=== PATIENT | male | born 1975 | race Caucasian/White ===

== ENCOUNTER 2025-04-09 13:34 | Outpatient (CLI) | payer OTHER, SELFPAY ==
--- NOTE | ~2025-04-09 | US_ITS ---
Renal-Bladder ultrasound Clinical History: Abdominal pain Technique: Real-time sonographic imaging of the kidneys and urinary bladder was performed. Findings: The right kidney measures 11.2 cm in length and the left kidney measures 12.5 cm. There is no hydronephrosis. There is a 1.1 x 0.8 x 0.8 cm echogenic focal area in the superior aspect of the r ight kidney which appears to be near the sinus. No shadowing but there is twinkle artifact.. Renal co rtical echogenicity is within normal limits. No renal mass lesion is identified. The urinary bladder is partially distended at the time of this exam. No intraluminal echoes are ident ified. No abnormal wall thickening is seen. Impression: 1.1 cm echogenic area of the supraspinatus right kidney without shadowing, but with twinkle artifact. Consider stone versus focally prominent sinus fat. Consider CT to further evaluate as indicated. Reviewed, dictated and finalized at location . Impression: 1.1 cm echogenic area of the supraspinatus right kidney without shadowing, but with twinkle artifact. Consider stone versus focally prominent sinus fat. Consi antonio CT to further evaluate as indicated.
--- OUTSIDE RECORDS SUMMARY | 2025-04-09 13:44 | XMS_ITS | Clinical Summary ---
Author Organization [facility] Address [address] [place] [address] Care Team Providers Care Laborer Starch Factory Name Role Phone Oscar Brink MD Primary Care Provider +1- [phone] Allergies No known active allergies Surgical History Surgery Date Site/Laterality Comments TOE SURGERY Left Medical History Medical History Date Comments Hx Other Medical Foot 2years ago Hypertension Family History Medical History Relation Name Comments Hypertension Other Family history of Hypertension; Relation Name Status Comments Other Social History Tobacco Use Types Packs/Day Years Used Date Smoking Tobacco: Never Smokeless Tobacco: Never Personal Safety Answer Date Recorded Have you ever been in or are you currently in a harmful physical or emotional relationship or is someone making you feel afraid or unsafe? 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 Gender Identity Not on file Sexual Orientation Not on file Obstetrics History Last Filed Vital Signs Vital Sign Reading Time Taken Comments Blood Pressure 161/103 05/07/2024 5:12 PM CDT Pulse 76 05/07/2024 5:12 PM CDT Temperature 36.3 C (97.3 F) 05/07/2024 12:02 PM CDT Respiratory Rate 16 05/07/2024 5:12 PM CDT Oxygen Saturation 99% 05/07/2024 5:12 PM CDT Inhaled Oxygen Concentration - - Weight 99.8 kg (220 lb) 05/07/2024 12:02 PM CDT Height 182.9 cm (6') 05/07/2024 12:02 PM CDT Body Mass Index 29.84 05/07/2024 12:02 PM CDT Plan of Treatment Health Maintenance Due Date Last Done Comments Colon Cancer Screening-Colonoscopy 1975 Depression Screening 1975 Hepatitis C Screening 1975 DTaP/Tdap/Td Vaccine (1 - Tdap) 1986 Hepatitis B Screening 1993 Regular Well Visit/Exam 18-64 1993 Covid-19 Vaccine (4 2023-2 5 season) 2024 10/28/2021, 02/01/2021, 01/11/2021 Influenza Vaccine (#1) 2024 Pneumococcal vaccine <65 Aged Out No longer eligible based on patient's age to complete this topic Insurance UHC CHOICE PLUS [id number] CHOICE PLUS [facility] CHOICE PLUS Care Teams Laborer Starch Factory Relationship Specialty Start Date End Date Oscar Brink MD [address] [facility] [address] [place] [address] PCP - General 12/23/16
--- OUTSIDE RECORDS SUMMARY | 2025-04-09 13:44 | XMS_ITS | Clinical Summary ---
Author Organization [facility] Address [address] [place] [address] Care Team Providers Care Final Inspector Truck Trailer Name Role Phone Unavailable Primary Care Provider Unavailabl e Source Comments [facility],non-owned Affiliates and Associated Physician Practices is amultiple site organization consisting of ambulatory clinics and hospital sitesin [place], [place], [place] and [place]. This disclosure is being madepursuant to the Care Everywhere program and may not contain all information available regarding this patient. Last updated 18.[facility] Allergies No known active allergies Medications * Be aware that medications may not be up to date on this document. Alwaysverify current medications with the patient. losartan (Cozaar) 100 MG tablet Take 1 (one) tablet by mouth once daily 4 Active sildenafil (Viagra) 100 MG tablet take 1 tablet by mouth once daily if needed for SEXUAL ACTIVITY A... (REFER TO PRESCRIPTION NOTES). 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 Gender Identity Not on file Sexual Orientation Not on file Last Filed Vital Signs Vital Sign Reading Time Taken Comments Blood Pressure 160/108 06/03/2024 10:07 AM CDT Pulse 76 06/03/2024 10:07 AM CDT Temperature 36.9 C (98.4 F) 06/03/2024 10:07 AM CDT Respiratory Rate 17 05/02/2024 12:12 PM CDT Oxygen Saturation 99% 05/02/2024 12:12 PM CDT Inhaled Oxygen Concentration - - Weight 104.8 kg (231 lb) 06/03/2024 10:07 AM CDT Height 182.9 cm (6') 06/03/2024 10:07 AM CDT Body Mass Index 31.33 06/03/2024 10:07 AM CDT Plan of Treatment Health Maintenance Due Date Last Done Comments COLOGUARD (AGES 45-75) - COL ON CA SCREENING 1975 COLON MONITORING 1975 COLONOSCOPY - COLON CA SCREENING 1975 CT COLONOGRAPHY - COLON CA SCREENING 1975 Colorectal Cancer Screening 1975 FIT - COLON CA SCREENING 1975 FLEX SIG - COLON CA SCREENING 1975 LIPID TESTING 1975 HIV SCREENING 1990 HEPATITIS C SCREENING 04/28/1993 DTAP/TDAP/TD VACCINES (1 - Tdap) 1994 HEPATITIS B VACCINE (1 of 3 - 19+ 3-dose series) 1994 COVID-19 VACCINE (2 - 2023-2 5 season) 2024 10/28/2021 DEPRESSION SCREENING 11/27/2024 06/03/2024 ZOSTER VACCINE (1 of 2) 2025 INFLUENZA VACCINE (Season Ended) 2025 SCREENING FOR DIABETES 05/02/2027 , 05/01/2024 HIB VACCINE Aged Out No longer eligi ble based on patient's age to complete this topic HPV VACCINE Aged Out No longer eligi ble based on patient's age to complete this topic MENINGOCOCCAL (Group B) VACCINE SHARED DECISION-MAKING Aged Out No longer eligible based on patient's age to complete this topic MENINGOCOCCAL GROUPS A/C/Y/W VACCINE Aged Out No longer eligible b ased on patient's age to complete this topic Procedures Procedure Name Priority Date/Time Associated Diagnosis Comments BASIC METABOLIC PANEL (CALCIUM TOTAL) STAT 05/02/2024 4:56 AM CDT Acute pain of left lower extremity Bradycardia from Last 3 Months or Most Recently Relevant to Health Maintenance Results * (ABNORMAL) BASIC METABOLIC PANEL (CALCIUM TOTAL) (05/02/2024 4:56 AM CDT) [facility] Signature Glucose 86 70 - 105 mg/dL 05/02/2024 6:43 AM CDT [facility] Sodium 140 136 - 145 mmol/L 05/02/2024 6:43 AM CDT [facility] Potassium 3.9 3.5 - 5.1 mmol/L 05/02/2024 6:43 AM CDT [facility] Chloride 108(H) 98 - 107 mmol/L 05/02/2024 6:43 AM CDT [facility] CO2 25 22 - 29 mmol/L 05/02/2024 6:43 AM CDT [facility] Calcium 9.4 8.4 - 10.4 mg/dL 05/02/2024 6:43 AM CDT [facility] Anion Gap 7 6 - 16 mmol/L 05/02/2024 6:43 AM CDT [facility] BUN 17 5.3 - 18.7 mg/dL 05/02/2024 6:43 AM CDT [facility] Creatinine 0.91 0.72 - 1.25 mg/dL 05/02/2024 6:43 AM CDT [facility] eGFR by CKD-EPI >90 >=90 mL/min/1.7 3 m2 05/02/2024 6:43 AM T [facility] Blood BLOOD SPECIMEN / Unknown Lab Venipuncture / Unknown 05/02/2024 4:56 AM CDT 05/02/2024 6:07 AM CDT us Shaye Ochoa MD LAB - CHEMISTRY ORDERABLES Final Result [facility] [address] [place] [address] from Last 3 Months or Most Recently Relevant to Health Maintenance Insurance [facility] Advance Directives * Full Code (Latest Code Status on File) Date Activated Date Inactivated Comments 05/01/2024 9:39 PM 05/02/2024 5:28 PM
--- OUTSIDE RECORDS SUMMARY | 2025-04-09 13:44 | XMS_ITS | Encounter Summary ---
Author Organization [facility] Address [address] [place] [address] Care Team Providers Care Wood Flooring Specialist Name Role Phone Oscar Brink MD Primary Care Provider +1- [phone] Encounter Details Date Type Department Care Team (Late st Contact Info) Description 12/23/2016 Orders Only [facility] ProviderGisselle MD [address] [place] [address] Social History Tobacco Use Types Packs/Day Years Used Date Smoking Tobacco: Never Assessed Sex and Gender Information Value Date Recorded Sex Assigned at Not on file 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 Historical Provider [facility] VALENTIN Final Result documented in this encounter Visit Diagnoses Not on filedocumented in this encounter Care Teams Wood Flooring Specialist Relationship Specialty Start Date End Date Oscar Brink MD [address] [place] [address] PCP - General 12/23/16 documented as of this encounter
--- OUTSIDE RECORDS SUMMARY | 2025-04-09 13:44 | XMS_ITS | Continuity of Care Document ---
Author Organization [facility] Address [address] [place] [address] [place] [address] Phone Care Team Providers Care Machine Stuffer Automatic Name Role Phone Boby Mendoza MD Unavailable Unavailable Allergies, Adverse Reactions, Alerts Substance Reaction Status Criticality No Known Allergies Active No Inform ation Medications Medication Instructions Dosage Effective Dates (start - stop) Status Comments Flexeril 10 mg tablet take 1 tablet by oral route 2 times every day as needed 10 MG - Active PRN for pain , avoid driving or operat emachines prednisone 20 mg tablet take 3 Tablet by oral route every day 60 MG - Active Edelmira 180 mg tablet take 1 tablet by oral route every day - Active cefdinir 300 mg capsule take 1 capsule by oral route every 12 hours 300 MG - Active Flonase 50 mcg/actuation nasal spray,suspension inhale 2 spray by intranasal route every day in each nostril 100 MCG - Active Procedures Procedure Date PREV VISIT, NEW, AGE 18-39 OFFICE/OUTPATIENT VISIT, NEW Advance Directives Directive Yes / No Effective Date File Name No Information Encounters Encounter Description Practice Location Reason(s) For Visit Diagnoses Date Provider Providers Copied on Encounter PREV VISIT, NEW, AGE 18-39 [facility], [address] [place], [place] [address], [place], [id number], [place] tel:[phone] [facility] Physical (chief complaint) Dietary surveillance and counselingRoutine Medical ExamUnspecified sinusitis (chronic)LumbagoRo utine Medical Exam [address], [facility], [place], [place], [id number] , [place]. tel:[phone] Family History Family Member Type Diagnosis Age At Onset Mother Problem (finding) COPD, lung CA Father Problem (finding) Alive and well Payers Payer name Insurance type Covered alliance party ID Authorhomero mckenzie(s) No Information Social History Type Description Quantity Date Captured Comments Alcohol Use Details Caffeine Use Details Unknown Tobacco Use Status No Information Smoking Status Never smoker Non-Smoking Tobacco Use Details : No Details Available : No Details Available Sex Male Vital Signs Date / Time: Height Weight BMI Pulse Rate Blood Pressure Temperature Respiratory Rate Body Surface Area Head Circumference BMI percentile Pulse Ox Inhaled Ox 9:34 AM 72.00 in 235.00 lbs 31.8 7 kg/m eter (2) 64 /min 130/93 mm[Hg] 97.3 F 16 /min Chief Complaint And Reason For Visit From encounter dated '04/01/2015 09:33'. Physical (chief complaint) Plan Of Treatment Date Type Action Status Referral Ordered: Physical Therapy (related to Lumbago) ordered Referral Referred To: Physical Therapy Ordered: Referral: Physical Therapy. Evaluate and treat. ordered Referral Ordered: LUMBAR XRAY AP AND LAT ONLY ordered History Of Present Illness Encounter Date Complaint History Of Prese nt Illness No Information Instructions Date Instruction Additional Infor mation Physical activity counseling Rel ated to Dietary surveillance counseling Decrease caloric intake Related to Dietary surveillance counseling Assessments Type Assessment Date No Information Mental Status Date Cognitive Assessment Orientation - [place] ed to time, place, person, situation.
--- OUTSIDE RECORDS SUMMARY | 2025-04-09 13:44 | XMS_ITS | Referral Summary ---
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
== END 2025-04-09 13:35 | disposition home or self-care (01) ==
PROVIDERS: PCP Internal Medicine; Visit Provider Internal Medicine
DX: R93.421 Abnormal radiologic findings on diagnostic imaging of right kidney (principal); R10.9 Unspecified abdominal pain
CPT/HCPCS: 76775

== ENCOUNTER 2025-04-25 10:26 | Outpatient (CLI) | payer OTHER, SELFPAY ==
--- OUTSIDE RECORDS SUMMARY | 2025-04-25 10:45 | XMS_ITS | Clinical Summary ---
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
--- OUTSIDE RECORDS SUMMARY | 2025-04-25 10:45 | XMS_ITS | Clinical Summary ---
Author Organization [facility] Address [address] [place] [address] Care Team Providers Care Employment Assistant Name Role Phone Unavailable Primary Care Provider Unavailabl e Source Comments [facility],non-owned Affiliates and Associated Physician Practices is amultiple site organization consisting of ambulatory clinics and hospital sitesin [place], [place] and [place]. This disclosure is being madepursuant to the Care Everywhere program and may not contain all information available regarding this patient. 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 Gender Identity Not on file Sexual Orientation [...] PANEL (CALCIUM TOTAL) (05/02/2024 4:56 AM CDT) [facility] Signature Glucose 86 70 - 105 mg/dL 05/02/2024 6:43 AM CDT [facility] Sodium 140 136 - 145 mmol/L 05/02/2024 6:43 AM CDT [facility] Potassium 3.9 3.5 - 5.1 mmol/L 05/02/2024 6:43 AM CDT [facility] Chloride 108(H) 98 - 107 mmol/L 05/02/2024 6:43 AM CDT [facility] CO2 25 22 - 29 mmol/L 05/02/2024 6:43 AM CDT [facility] Calcium 9.4 8.4 - 10.4 mg/dL 05/02/2024 6:43 AM CDT [facility] Anion Gap 7 6 - 16 mmol/L 05/02/2024 6:43 AM CDT [facility] BUN 17 5.3 - 18.7 mg/dL 05/02/2024 6:43 AM CDT [facility] Creatinine 0.91 0.72 - 1.25 mg/dL 05/02/2024 6:43 AM CDT [facility] eGFR by CKD-EPI >90 >=90 mL/min/1.7 3 m2 05/02/2024 6:43 AM T [facility] Blood BLOOD SPECIMEN / Unknown Lab Venipuncture / Unknown 05/02/2024 4:56 AM CDT 05/02/2024 6:07 AM CDT us Shaye Ochoa MD LAB - CHEMISTRY ORDERABLES Final Result [facility] [address] [place] [address] from Last 3 Months or Most Recently Relevant to Health Maintenance Insurance [facility] [place] [address] Advance Directives * Full Code (Latest Code Status on File) Date Activated Date Inactivated Comments 05/01/2024 9:39 PM 05/02/2024 5:28 PM
--- OUTSIDE RECORDS SUMMARY | 2025-04-25 10:45 | XMS_ITS | Continuity of Care Document ---
Author Organization [facility] Address [address] [place] [address] Phone Care Team Providers Care Irrigationist Name Role Phone Boby Mendoza MD Unavailable Unavailable Allergies, Adverse Reactions, Alerts Substance Reaction Status Criticality No Known Allergies Active No Inform ation Medications Medication Instructions Dosage Effective Dates (start - stop) Status Comments Flonase 50 mcg/actuation nasal spray,suspension inhale 2 spray by intranasal route every day in each nostril 100 MCG - Active cefdinir 300 mg capsule take 1 capsule by oral route every 12 hours 300 MG - Active Edelmira 180 mg tablet take 1 tablet by oral route every day - Active prednisone 20 mg tablet take 3 Tablet by oral route every day 60 MG - Active Flexeril 10 mg tablet take 1 tablet by oral route 2 times every day as needed 10 MG - Active PRN for pain , avoid driving or operat emachines Procedures Procedure Date PREV VISIT, NEW, AGE 18-39 OFFICE/OUTPATIENT VISIT, NEW Advance Directives Directive Yes / No Effective Date File Name No Information Encounters Encounter Description Practice Location Reason(s) For Visit Diagnoses Date Provider Providers Copied on Encounter PREV VISIT, NEW, AGE 18-39 [facility], [address] [place], [place] [address], [id number], [place] tel:[phone] [facility] Physical (chief complaint) Dietary surveillance and counselingRoutine Medical ExamUnspecified sinusitis (chronic)LumbagoRo utine Medical Exam [address]. [address], [facility], [place], [place], [id number] , [place]. tel:[phone] Family History Family Member Type Diagnosis Age At Onset Mother Problem (finding) COPD, lung CA Father Problem (finding) Alive and well Payers Payer name Insurance type Covered libertarian ID Authorhomero mckenzie(s) No Information Social History [...] Mental Status Date Cognitive Assessment Orientation - [place] ed to time, place, person, situation.
--- OUTSIDE RECORDS SUMMARY | 2025-04-25 10:45 | XMS_ITS | Encounter Summary ---
Author Organization [facility] Address [address] [place] [address] Care Team Providers Care Heat Treat Technician Name Role Phone Oscar Brink MD Primary Care Provider +1- [phone] Encounter Details Date Type Department Care Team (Late st Contact Info) Description 12/23/2016 Orders Only [facility] ProviderGisselle MD [address] [place] [address] Social History Tobacco Use Types Packs/Day Years Used Date Smoking Tobacco: Never Assessed Sex and Gender Information Value Date Recorded Sex Assigned at Not on file Legal Sex Male 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
--- OUTSIDE RECORDS SUMMARY | 2025-04-25 10:45 | XMS_ITS | Referral Summary ---
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
--- NOTE | 2025-05-08 16:13 | WPDHOLTEREM ---
Holter/Event Monitor Holter/Event Monitor Date of procedure: 04/25/25 Holter/Event Procedure: 3-7 Day Holter Monitor Indications: Palpitations Conclusion: 1. 4 days holter monitor on 04/25/25. 2. Predominant rhythm is sinus rhythm. HR range 31-151 bpm; average HR 70 bpm. HR at 31 bpm was on 04/27/25 at 7:10 am due to a 2:1 2nd degree AV block. HR at 151 bpm was on 04/26/25 at 11:32 am. 3. There are rare premature supraventricular complexes, rare supraventricular couplets, and rare supraventricular triplets. There is 1 episode of supraventricular tachycardia at 114 bpm lasting 17 beats. 4. There are rare premature ventricular complexes. No ventricular tachycardia. 5. There are 3 episodes of pauses greater than 3 seconds at 3.8 seconds on 04/26/25 at 5:06 am due to a 2:1 2nd degree AV block, at 3.7 seconds on 04/27/25 at 7:10 am due to a 2:1 2nd degree AV block, and at 3.7 seconds on 04/29/25 at 2:46 am due to a sinus pause. 6. No symptoms available for correlation.
== END 2025-04-25 10:27 | disposition home or self-care (01) ==
PROVIDERS: PCP Internal Medicine; Visit Provider Nurse Practitioner
DX: R00.2 Palpitations (principal)
CPT/HCPCS: 93242